=== PATIENT | male | born 1955 | race Caucasian/White ===

== ENCOUNTER → 2023-08-29 13:44 | Outpatient (BNVA) | payer OTHER, SELFPAY | PROVIDERS: Referring Provider Family Medicine; Visit Provider Internal Medicine | DX: R07.9 Chest pain, unspecified (principal); I20.0 Unstable angina; I10 Essential (primary) hypertension; R06.02 Shortness of breath | CPT/HCPCS: 93005; 99204 ==

== ENCOUNTER 2023-09-04 06:57 | Outpatient (CLI) | payer OTHER, SELFPAY ==
--- NOTE | 2023-09-04 07:30 | XACV_ITS ---
Exam Room: 2 Ht: 175 cm Wt: 106 kg BSA: 2.31 m2 Gender: Male : 1955 Any Known Allergies: Other Exam Priority: Routine Procedure(s): Procedure Description: Diagnostic procedure Procedure Description: Left Heart Catheterization Procedure Description: Left ventriculography Procedure Description: Miscellaneous Procedure Description: Angio-Seal Procedure Description: Coronary Angiography Diagnostic Cath Status: Elective Diagnostic Findings * Left Main has no significant disease. * Right Coronary Artery has mild to moderate luminal irregularities. * Mid Left Anterior Descending: mild 40% in-stent restenosis, JULIETH: 3 flow. Prior stents are patent. * Ostial Circumflex: mild 40% stenosis, JULIETH: 3 flow. * Ramus intermedius artery is medium to large in size and is patent. * Coronary angiography shows right dominance. Conclusions 1. Mild to moderate in-stent restenosis of mid LAD stent. Moderate 40% ostial left circumflex artery stenosis.. 2. Normal left ventricular systolic function. Ejection fraction of 55%. Recommendations * Patient's symptoms are secondary to uncontrolled hypertension as CAD is mild to moderate. I had a detailed discussion regarding aggressive blood pressure control. However patient says he does not think that is the reason for his chest pain and he does not think that severe hypertension can cause chest pain. * Outpatient cardiology follow up in 2 weeks. Interventional RX Recommendation: medical therapy and/or counseling Diagnostic RX Recommendation: medical therapy and/or counseling Ventriculography Ejection Fraction: 55.0 % Pressures Phase:Rest AO : 134 / 75 ( 99 ) @ 9:05:00 AM 131 / 103 ( 116 ) @ 9:11:00 AM 141 / 68 ( 103 ) @ 9:41:00 AM 140 / 69 ( 100 ) @ 9:41:00 AM LV : 146 / -13 / 9 @ 9:40:00 AM 156 / -9 / 13 @ 9:41:00 AM 150 / -9 / 15 @ 9:41:00 AM Valves Phase:DefaultPhase AV : 8.0 @ 9:59:37 AM 8.0 @ 9:59:37 AM AV Mean Gradient: 30.0 @ 9:59:37 AM 30.0 @ 9:59:37 AM Clinical Evaluation EBL: 5mL-10mL Procedural Details Procedure Consent Obtained. Current Diagnosis : Chest Pain. Pre-Procedure Time Out. Identified patient by full name and date of as verbalized by the patient/guarantor. Does the consent match the physician's order: Yes. Accurate & Complete Informed Consent: Yes. Inpatient/Outpatient History & Physical on Chart: Yes. If H&P is completed, is and addenduem needed: No; If yes, is the addendum complete: N/A. Visualize and Verify Site with Patient/Guarantor: N/A. Relevant Radiology Images available: Yes. Pre-op teaching completed and patient verbalized understanding. The risks, benefits, and alternatives of sedation and/or procedure were discussed by physician. The patient agrees to continue. Procedure started. [facility] Clinical Fraility Score: 3: Managing Well. 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 Chest Pain Symptom Assessment: Atypical Angina. Correct patient, site and procedure confirmed by cath team. Current diagnosis: Chest Pain. PERRLA. Strong, equal hand archery equipment repairer bilaterally. Lungs clear x 5 lobes. IV Site on Arrival: 20 gauge in the left anticubital. IV Fluids: 0.9% NaCl at KVO. 0 mL infused prior to laboratory assistant. Pre Procedural Pulses: bilateral dorsalis pedis was 3+. Pre Procedural Pulses: bilateral posterior tibial was 3+. Pre Procedural Pulses: bilateral radial was 3+. Oxygen started at 2liters/min via nasal canula. right groin was prepped with chloroprep then draped in the usual sterile fashion. right radial was prepped with chloroprep then draped in the usual sterile fashion. Baseline sample Acquired. HR: 62 BPM. Physician notified. Physician arrived. Physician scrubbed in. Immediate Pre-Procedure Time Out. Correct Patient: Yes; Correct Procedure: Yes; Correct Site: Yes; Correct Patient Position: Yes; Correct Supplies: Yes; Dried Flammable Prep: Yes; Blood Products Available: N/A;. Lidocaine 1% infiltrated to the right radial. Arterial access obtained. A 5 macedonian Martinez catheter in over wire. Wire removed. Contrast injected through the catheter. Runthrough wire inserted through the catheter. Runthrough wire out. Exchange wire inserted. Catheter removed over the exchange wire. A 5 macedonian JL3.5 catheter in over wire. Multiple views taken of left coronary artery. Catheter removed over the exchange wire. A 5 macedonian JR4 catheter in over wire. Catheter removed over the exchange wire. A TR Band was successful obtaining hemostatsis at the Right Radial artery insertion site. Lidocaine 1% infiltrated to the right groin. Arterial access obtained with micropuncture set. A 5 macedonian JR4 catheter in over wire. Catheter removed over the exchange wire. A 5 macedonian AL1 catheter in over wire. Catheter removed over the exchange wire. A 5 macedonian 3DRC catheter in over wire. Multiple views taken of right coronary artery. Catheter removed over the exchange wire. A 5 macedonian Angled Pig catheter in over wire. EDP Sample taken: LV 146/-14,9; HR: 72 BPM; SpO2: 96%. LV gram performed in BENEDICT @ 10 mL/second for a total of 30 mL. EDP Sample taken: LV 156/-9,13; HR: 73 BPM; SpO2: 94%. Pullback taken: LV 150/-10,15; AO 141/68(103); Mean: 30mmHg, Peak to Peak: 8mmHg, SEP: 6sec/min; HR: 73 BPM; SpO2: 96%. Catheter removed over the exchange wire. A Right femoral angiogram was performed to determine safe placement of closure device. A Angio-Seal VIP ([facility]) was successful obtaining hemostatsis at the Right Femoral artery insertion site. Post Procedure: Pulses reassessed and unchanged. PERRLA. Strong, equal hand archery equipment repairer bilaterally. No VTE prophylaxis required. Medication's Wasted: Lidocaine 1% = 9 mL. Medication's Wasted: Nitro = 49.8 mg. Total IV fluids: 76 mL. Complications: None. Estimated blood loss: 5mL-10mL. Responsiveness - Normal response to verbal stimuli; alert and oriented, PERRLA. Airway - Unaffected, no intervention required; spontaneous ventilation. Circulation: W/N/L, pulses unchanged. Nausea/Vomiting: No. Procedure completed. Patient transferred by bed to 1st floor. Vital chart was stopped. Access Site Site: Right Radial artery Sheath Size: 6 Fr Hemostasis Method: TR Band Hemostasis Success: Successful Site: Right Femoral artery Sheath Size: 5 Fr Hemostasis Method: Angio-Seal VIP ([facility]) Hemostasis Success: Successful Procedure Medications Start: 8:53 AM Stop: 8:53 AM Medication: Versed Amount: 1 mg Route: I.V. Start: 8:53 AM Stop: 8:53 AM Medication: Fentanyl Amount: 50 mcg Route: I.V. Start: 8:57 AM Stop: 8:57 AM Medication: Versed Amount: 1 mg Route: I.V. Start: 8:58 AM Stop: 8:58 AM Medication: Nitrogylcerin Amount: 200 mcg Route: I.A. Start: 9:05 AM Stop: 9:05 AM Medication: Heparin Amount: 5000 units Route: I.V. Start: 9:16 AM Stop: 9:16 AM Medication: Versed Amount: 1 mg Route: I.V. Start: 9:11 AM Stop: 9:11 AM Medication: Fentanyl Amount: 25 mcg Route: I.V. Start: 9:17 AM Stop: 9:17 AM Medication: Fentanyl Amount: 25 mcg Route: I.V. Start: 9:23 AM Stop: 9:23 AM Medication: Versed Amount: 1 mg Route: I.V. I, the attending physician, have reviewed and verified all procedure medications. Yes, all medications given per verbal order History/Risk Factors Hypertension: Yes Dyslipidemia: No Peripheral Arterial Disease (PAD): No Myocardial Infarction (NC): Yes Obesity: No Renal Disease: No Prior Interventions PCI: No CABG: No Valve Surgery: No Report Signatures Finalized by Richar Davidson MD on 09/10/2023 12:04 PM
[2023-09-04 07:35] LABS: Basophils # 0.1 10^3/uL (0.0-0.1); Basophils % 0.7 %; Eosinophils # 0.2 10^3/uL (0.0-0.8); Eosinophils % 2.5 %; Hematocrit 48.2 % (37-53); Lymphocytes # 1.9 10^3/uL (0.8-4.8); Lymphocytes % 27.8 %; Mean Corpuscular HGB Conc 35.3 g/dL (30-55); Mean Corpuscular Hemoglobin 33.1 pg (27-33); Mean Platelet Volume 9.1 fL (7.4-10.4); Monocytes # 0.8 10^3/uL (0.2-0.9); Monocytes % 11.1 %; Neutrophils # 3.94 10^3/uL (1.8-7.7); Neutrophils % 57.6 %; Nucleated Red Blood Cells % 0 %; Platelet Count 238 10^3/cmm (157-399); Red Blood Count 5.13 10^6/uL (3.85-5.65); White Blood Count 6.84 10^3/uL (3.29-11.43)
[2023-09-04 07:51] LABS: Anion Gap 14.5 (5-19); Blood Urea Nitrogen 16 mg/dL (8-23); Calcium 10.2 mg/dL (8.5-10.5); Carbon Dioxide 27 mmol/L (22-29); Chloride 100 mmol/L (98-107); Glomerular Filtration Rate 96.4 mL/min (90-130); Glucose 113 mg/dL (65-115); Osmolality Calculated 288 mOsm/kg (285-295); Potassium 3.5 mmol/L (3.5-5.1); Sodium 138 mmol/L (136-145)
[2023-09-04 07:52] VITALS: BP 164/88; PULSE 74; RESP 14; TEMP 36.8; O2SAT 96; BMI 34.4
[2023-09-04] MEDS: diphenhydrAMINE 50 mg Capsule PO (08:02)
[2023-09-04] MEDS: aspirin 325 mg Tablet PO (08:02)
[2023-09-04 08:06] LABS: INR 0.91 (0.8-1.2)
--- NOTE | 2023-09-04 08:07 | PC.NURSE ---
Patient states that he has no family or friends to drive him home or stay with him for 24 hours after the procedure. Patient states that he will pay a cab to drive him to the hotel to stay over night. I called Dr. Davidson and he okayed
--- NOTE | 2023-09-04 08:34 | W.PM.OPSUD ---
Surgery/Procedure H&P Update DATE OF PROCEDURE: September 04, 2023 DATE H&P PERFORMED: 08/29/23 H&P UPDATE INFORMATION: I have reviewed H&P completed within last 30 days, I have examined patient prior to procedure and No changes to prior documentation PREOP DIAGNOSIS: Worsening angina PRIMARY INDICATION FOR PROCEDURE: Worsening angina PLANNED PROCEDURE: Operation Date: 09/04/23 08:30 Proposed Procedures p Left heart cath 58895,R94.39(Left) - Richar Davidson M.D Possible percutaneous coronary intervention PATIENT REASSESSED PRIOR TO SEDATION, WITH NO CHANGE NOTED: Yes PHYSICAL EXAM: alert, oriented x 3, clear to auscultation bilaterally and regular rate & rhythm AIRWAY EVAL/ANESTHESIA PLAN: normal airway, ASA III, Local Anesthesia, Risks, benefits & alternatives of sedation and/or procedure discussed and Patient agrees to continue as planned ADDITIONAL INFORMATION: Moderate sedation
--- NOTE | 2023-09-04 10:49 | PC.NURSE ---
received from cardiac oil laboratory analyst at 1000.report received.sr on monitor.pt denies pain at present.right wrist with tr band on and inflated.no hematoma noted.right hand is warm to touch and with brisk capillary refill.palpable radial pulse noted distal to tr band .right groin with drsg dry and intact.(angioseal in oil laboratory analyst).no hematoma noted.palpable dp pulse noted.right leg is warm to touch and with brisk capillary refill.pt instructed in activity restrictions s/p radial and femoral artery procedure..and instructed to notify staff for any bleeding pain,numbness,or for any concerns at all.pt verb understanding of instructions.
--- NOTE | 2023-09-04 16:10 | PC.NURSE ---
pt has been very restless...laying over on side while on bedrest post sheath pull...using right hand post radial artery procedure.keeps informing the nurses that marta been through this 6 times! no hematoma formation noted.pt instructed several times in post radial and femoral activity restrictions.
--- NOTE | 2023-09-04 16:13 | PC.NURSE ---
right radial tr band slowly deflated and eventually removed at 1500.no hematoma formation noted.right hand remains warm to touch and with brisk capillary refill.pt instructed in activity restrictions and instructed to notify staff for any bruising,bleeding,pain,numbness..or for any concerns at all.pt verb understanding of instructions
--- NOTE | 2023-09-04 17:03 | PC.NURSE ---
discharge instructions given and explained.pt verb understanding of instructions.discharged to home at this time.pt states he drove himself and feels capable of driving home.
== END 2023-09-04 17:05 | disposition home or self-care (01) ==
LOC: CCL 06:58 → CSU 11:01
PROVIDERS: Visit Provider Internal Medicine
DX: I25.110 Atherosclerotic heart disease of native coronary artery with unstable angina pectoris (principal); I10 Essential (primary) hypertension; I25.2 Old myocardial infarction; Z95.5 Presence of coronary angioplasty implant and graft; I45.10 Unspecified right bundle-branch block; Z79.82 Long term (current) use of aspirin
CPT/HCPCS: 36415; 80048; 85025; 85610; 93458; 96361; 96365; 99152; 99153; C1760; C1769; C1887; C1894; G0378; J1644; J2250; J3010; J3490; J7030; Q0163; Q9967

== ENCOUNTER → 2023-09-17 15:18 | Outpatient (BNVA) | payer OTHER, SELFPAY | PROVIDERS: PCP Nurse Practitioner; Visit Provider Nurse Practitioner Family | DX: I10 Essential (primary) hypertension (principal); I25.118 Atherosclerotic heart disease of native coronary artery with other forms of angina pectoris; R07.9 Chest pain, unspecified | CPT/HCPCS: 99214 ==

== ENCOUNTER 2023-09-20 14:04 | Outpatient (CLI) | payer OTHER, SELFPAY ==
--- NOTE | 2023-09-20 14:07 | USCV_ITS ---
Ranjit Sales Age: 68 Gender: M : 1955 Exam Date: 09/20/2023 15:10 Ordering Phys: Richar Davidson M.D ([email or web address]) Technologist: Daksha Cortes [place] [facility] [place] Indication: CAD WITH ONGOING PROBLEMS. S BP: / HR: 82 Rhythm: Sinus Technical Quality: Adequate MEASUREMENTS (Male / Female) Normal Values 2D ECHO LV Diastolic Diameter PLAX 4.0 cm 4.2 - 5.9 / 3.9 - 5.3 cm LV Systolic Diameter PLAX 2.9 cm LV Chamber Size 2.5 cm IVS Diastolic Thickness 1.8 cm 0.6 - 1.0 / 0.6 - 0.9 cm IVS Systolic Thickness 1.7 cm LVPW Diastolic Thickness 1.9 cm 0.6 - 1.0 / 0.6 - 0.9 cm LVPW Systolic Thickness 2.1 cm RV Chamber Size 2.7 cm LVOT Diameter 2.3 cm LV Ejection Fraction 2D Teich 54.7 % LV Ejection Fraction MOD 2C 47.5 % LV Ejection Fraction 2C AL 48.7 % LA Diameter 3.5 cm LA Width 2.6 cm LA Height 3.4 cm RA Width 3.8 cm RA Height 3.2 cm Aorta at Sinotubular Diameter 3.5 cm IVC Diameter 2.6 cm M-MODE Aortic Annulus Diameter 4.1 cm LA Ao Ratio MM 1.0 MV E Point Septal Separation 0.8 cm DOPPLER AV Peak Velocity 121.0 cm/s LVOT Peak Velocity 97.0 cm/s AV Area Cont Eq vti 3.6 cm squared AV Area Cont Eq pk 3.4 cm squared MV Area PHT 3.1 cm squared Mitral E to A Ratio 0.7 MV E' Velocity 35.0 cm/s Mitral E to MV E' Ratio 11.0 Mitral E to LV E' Lateral Ratio 14.4 Mitral E to LV E' Septal Ratio 9.0 TR Peak Velocity 183.8 cm/s TR Peak Gradient 13.5 mmHg TR Mean Velocity 195.2 cm/s TR Mean Gradient 15.7 mmHg TR Velocity Time Integral 61.8 cm TV Peak E Velocity 55.0 cm/s Right Atrial Pressure 3.0 mmHg Pulmonary Artery Systolic Pressu 16.5 mmHg RV Acceleration Time 0.3 s RV Ejection Time 0.1 s RV AcT/ET 2.4 FINDINGS Left Ventricle Left ventricle is normal in size. LV systolic function is normal with EF of 55 to 60%. No regional wall motion abnormalities are seen. Grade 1 diastolic dysfunction Right Ventricle Normal in size and function Right Atrium Normal in size Left Atrium Normal in size Mitral Valve Structurally normal mitral valve. Aortic Valve Structurally normal aortic valve. No significant stenosis or regurgitation. Tricuspid Valve Mild tricuspid regurgitation. Insufficient TR jet to calculate RVSP Pulmonic Valve Not well visualized Pericardium Normal Aorta Aortic root is dilated. IVC Not well visualized CONCLUSIONS LV systolic function is normal with EF of 55-60% Grade 1 diastolic dysfunction Mild tricuspid regurgitation Aortic root is dilated No comparison studies are available Richar Davidson MD (Electronically Signed) Final Date: 04 October 2023 11:24 S
== END 2023-09-20 14:05 | disposition home or self-care (01) ==
LOC: RAD 14:04
PROVIDERS: PCP Nurse Practitioner; Visit Provider Internal Medicine
DX: I25.10 Atherosclerotic heart disease of native coronary artery without angina pectoris (principal); I07.1 Rheumatic tricuspid insufficiency; I77.810 Thoracic aortic ectasia
CPT/HCPCS: 93306

== ENCOUNTER 2023-09-28 15:23 | Outpatient (CLI) | payer MEDICARE, SELFPAY ==
--- NOTE | 2023-09-28 16:00 | CT_ITS ---
WS: [id number] CTA HEAD AND NECK TECHNIQUE: Contrast enhanced CTA of the head and neck with coronal and sagittal reformatted images an d maximum intensity projection (MIP) images. NASCET criteria utilized. CLINICAL INFORMATION: syncope, dizziness with head movement, uncontrolled HTN COMPARISON: None. DLP: 1388.[address] scans at [facility] use at least one of these dose optimization techniques: automated e xposure control; mA and/or kV adjustment per patient size (includes targeted exams where dose is matc hed to clinical indication); or iterative reconstruction. FINDINGS: No evidence intracranial hemorrhage or mass effect. Ventricular system and basilar cisterns are patent. Moderate small vessel changes. Moderate parenchymal volume loss. Chronic lacunar infarct in the virgil. Paranasal sinuses and mastoid air cells are well aerated. RIGHT: RIGHT common carotid artery is patent. Mild atheromatous plaque RIGHT carotid bulb extending i nto the ICA. No significant RIGHT ICA stenosis. RIGHT ICA is patent to the skull base. LEFT: LEFT common carotid artery is patent. Moderate calcified atheromatous plaque LEFT carotid bulb extending into the ICA. Stenosis measures approximately 54%. LEFT ICA remains patent to the skull bas e. INTRACRANIAL CTA: Distal vertebral arteries are patent. RIGHT dominant distal vertebral artery. Basilar artery is pat ent. Mild atheromatous disease in the HORTICULTURAL AGENT territory bilaterally with segmental stenosis. Distal HORTICULTURAL AGENT v essels remain patent. Both ICAs are patent at the skull base. Mild cavernous carotid calcification. Normal vascularity to t he ELISE and MCA territories bilaterally. No evidence of proximal flow-limiting stenosis or aneurysm. A reas of mild to moderate atheromatous disease. Both vertebral arteries are patent. LEFT dominant vertebral artery. Aortic calcification. Chronic emp hysematous changes in the lung apices. Mild to moderate spondylitic changes cervical spine. IMPRESSION: 1. No evidence of intracranial hemorrhage or mass effect. 2. Chronic lacunar infarct in the virgil. 3. Moderate small vessel changes with moderate parenchymal volume loss. 4. No significant RIGHT ICA stenosis. 5. Approximately 54% LEFT proximal ICA stenosis. LEFT ICA remains patent to the skull base. 6. RIGHT dominant vertebral artery. Both vertebrals are patent. 7. Scattered areas of mild to moderate intracranial atheromatous disease with segmental stenosis. No high-grade proximal flow-limiting stenosis.
[2023-09-28] MEDS: iohexol 350 mg/mL 100 mL Btl IV (16:02)
== END 2023-09-28 15:24 | disposition home or self-care (01) ==
LOC: RAD 15:23
PROVIDERS: PCP Nurse Practitioner; Visit Provider Nurse Practitioner Family
DX: I10 Essential (primary) hypertension (principal); I25.118 Atherosclerotic heart disease of native coronary artery with other forms of angina pectoris; R55 Syncope and collapse; R42 Dizziness and giddiness; Z86.73 Personal history of transient ischemic attack (TIA), and cerebral infarction without residual deficits; I67.89 Other cerebrovascular disease; I65.22 Occlusion and stenosis of left carotid artery; I67.2 Cerebral atherosclerosis
CPT/HCPCS: 70496; 70498; Q9967

== ENCOUNTER → 2023-10-08 10:43 | Outpatient (BNVA) | payer MEDICARE, OTHER, SELFPAY | PROVIDERS: PCP Nurse Practitioner; Referring Provider Nurse Practitioner Family; Visit Provider Thoracic Surgery (Cardiothoracic Vascular Surgery) | DX: I65.22 Occlusion and stenosis of left carotid artery (principal) | CPT/HCPCS: 99203 ==

== ENCOUNTER 2023-10-11 07:04 | Outpatient (CLI) | payer OTHER, SELFPAY ==
--- NOTE | 2023-10-11 07:30 | USCV_ITS ---
Bonifacio Salespopeyerafaela Age: 68 Gender: M : 1955 Exam Date: 10/11/2023 07:14 Ordering Phys: Andrea Leong MD (Andy) ([email or web address] [place]) Technologist: DAMIEN [place] [facility] [place]ication: EVAL FOR CAROTID STENOSIS Risk Factors: Previous Vascular Surgery: Right Brachial BP: / Left Brachial BP: / Right Left Velocity (cm/s) Spectral Plaque Velocity (cm/s) Spectral Plaque Syst/Diast Broadening Syst/Diast Broadening 85.60/ 16.20 Prox CCA 75.30 / 16.80 79.70/ 18.50 Mid CCA 62.70 / 18.60 79.90/ 18.60 Distal CCA 65.70 / 18.40 64.80/ 15.50 Prox ICA 144.00/ 51.30 70.30/ 24.80 Mid ICA 160.80/ 49.20 69.00/ 28.10 Distal ICA 69.00 / 28.50 91.10 ECA 84.40 0.90 ICA/CCA 2.40 Antegrade Vertebral Antegrade 46.30/ 15.80 cm/s 60.20/ 18.00 cm/s Tri Subclavian Tri 66.60 141.7 0 FINDINGS Comparison: none available. Tortuosity and mild elevation of left ICA velocity. Plaque in the bifurcation. Mild right carotid atherosclerosis. Antegrade vertebral arteries. CONCLUSIONS Left ICA stenosis 50-69%. Right ICA stenosis < 50%. Dr. Brenda Quinonez DO (Electronically Signed) Final Date: 11 October 2023 07:49 S
== END 2023-10-11 07:05 | disposition home or self-care (01) ==
LOC: RAD 07:05
PROVIDERS: PCP Nurse Practitioner; Visit Provider Thoracic Surgery (Cardiothoracic Vascular Surgery)
DX: I65.23 Occlusion and stenosis of bilateral carotid arteries (principal)
CPT/HCPCS: 93880

== ENCOUNTER → 2023-11-05 09:57 | Outpatient (BNVA) | payer OTHER, SELFPAY | PROVIDERS: PCP Nurse Practitioner; Visit Provider Thoracic Surgery (Cardiothoracic Vascular Surgery) | DX: I10 Essential (primary) hypertension (principal) | CPT/HCPCS: 99212 ==

== ENCOUNTER → 2023-12-10 09:42 | Outpatient (BNVA) | payer OTHER, SELFPAY | PROVIDERS: PCP Nurse Practitioner; Visit Provider Psychiatry & Neurology Neurology | DX: I65.22 Occlusion and stenosis of left carotid artery (principal); I25.118 Atherosclerotic heart disease of native coronary artery with other forms of angina pectoris; R42 Dizziness and giddiness; Z86.73 Personal history of transient ischemic attack (TIA), and cerebral infarction without residual deficits; I10 Essential (primary) hypertension | CPT/HCPCS: 99203 ==